=== PATIENT | male | born 1985 ===

== ENCOUNTER → 2022-08-01 11:06 | Outpatient (CLI) | payer OTHER, SELFPAY ==
[2022-08-01 21:43] LABS: Clostridium Difficile Tox PCR Negative for C. diff (Negative)
== END ==
PROVIDERS: Family Provider Family Medicine; PCP Physician Assistant; Visit Provider Physician Assistant
DX: R19.7 Diarrhea, unspecified (principal)
CPT/HCPCS: 87045; 87493; 87899